=== PATIENT | male | born 1960 | race Caucasian/White ===

== ENCOUNTER → 2020-03-17 10:13 | Outpatient (CLI) | payer BC, SELFPAY ==
--- NOTE | ~2020-03-17 | XR_ITS ---
EXAMINATION: XR shoulder RT min 2V DATE: 03/17/2020 10:46 INDICATION: Right shoulder joint pain. TECHNIQUE: 4 views of right shoulder were obtained. COMPARISON: None. FINDINGS: Bone alignment is normal. No fracture. There is mild osteoarthritis of glenohumeral joint a nd severe osteoarthritis of acromioclavicular joint. IMPRESSION: 1. Polyarticular osteoarthritis. Reviewed, dictated and finalized at location A. ER WINDER
--- NOTE | ~2020-03-17 | XR_ITS ---
EXAMINATION:XR cervical spine 4-5V DATE: 03/17/2020 10:46 INDICATION: Neck pain TECHNIQUE: AP, lateral, lateral swimmers and odontoid views of the cervical spine are provided. COMPARISON: None FINDINGS: Alignment is normal. The odontoid is intact. No fracture is identified. The vertebral body heights are maintained. There is mild loss of intervertebral disc space height at C5-6. There is mode rate facet and uncovertebral joint osteoarthritis of the lower cervical spine. Prevertebral soft tiss ues are normal. IMPRESSION: 1. Mild cervical spondylosis without acute findings. Reviewed, dictated and finalized at location A. S REPRESENTATIVE ADDING MACHINES
--- NOTE | ~2020-03-17 | XR_ITS ---
EXAMINATION: XR shoulder LT min 2V DATE: 03/17/2020 10:47 INDICATION: Left shoulder joint pain. TECHNIQUE: 4 views of left shoulder were obtained. COMPARISON: Left shoulder radiographs 11/01/2006 FINDINGS: Bone alignment is normal. No fracture. There is mild osteoarthritis of glenohumeral joint a nd moderate osteoarthritis of acromioclavicular joint. IMPRESSION: 1. Polyarticular osteoarthritis. Reviewed, dictated and finalized at location A. IO GRIP
== END ==
PROVIDERS: PCP Nurse Practitioner Family; Visit Provider Nurse Practitioner Family
DX: M47.812 Spondylosis without myelopathy or radiculopathy, cervical region (principal); M19.012 Primary osteoarthritis, left shoulder; M19.011 Primary osteoarthritis, right shoulder
CPT/HCPCS: 72050; 73030

== ENCOUNTER 2020-08-05 10:53 | Outpatient (CLI) | payer BC, SELFPAY ==
--- NOTE | ~2020-08-05 | XR_ITS ---
EXAMINATION: XR foot LT min 3V EXAM DATE: 08/05/2020 11:25 INDICATION: Psoriasis, arthralgia unspec . TECHNIQUE: Left foot dorsoplantar, lateral and oblique projections obtained and reviewed. Correlation is made to contralateral foot same date. FINDINGS: Left metatarsal bones unremarkable. There are no acute fractures or dislocations identifi ed. There is no subcutaneous gas. The soft tissue is unremarkable. There are no radiopaque foreig n bodies. IMPRESSION: 1. Unremarkable XR foot LT min 3V exam. Reviewed, dictated and finalized at location A.
--- NOTE | ~2020-08-05 | XR_ITS ---
EXAMINATION: XR foot RT min 3V EXAM DATE: 08/05/2020 11:25 INDICATION: Psoriasis, arthralgia unspec. TECHNIQUE: Right foot dorsoplantar, lateral and oblique projections obtained and reviewed. There is no prior study for comparison. FINDINGS: Right metatarsal bones unremarkable. There are no acute fractures or dislocations identifi ed. There is no subcutaneous gas. The soft tissue is unremarkable. There are no radiopaque foreig n bodies. IMPRESSION: 1. Unremarkable XR foot RT min 3V exam. Reviewed, dictated and finalized at location A.
--- NOTE | ~2020-08-05 | XR_ITS ---
EXAMINATION: XR hand BI arthritis min 3V EXAM DATE: 08/05/2020 11:25 INDICATION: Psoriasis, arthralgia unspec . TECHNIQUE: Right hand frontal, lateral and oblique projections obtained and reviewed. Left hand fron suresh, lateral and oblique projections obtained and reviewed. Catchers projection of both hands. There is no prior study for comparison. FINDINGS: Right hand: There is mild 2nd and 3rd distal interphalangeal primary osteoarthritis. There are no acu te fractures or dislocations identified. There is no subcutaneous gas. The soft tissue is unremarka ble. There are no radiopaque foreign bodies. There are no bony erosions identified. Left hand: The joint spaces are uniform. There are no acute fractures or dislocations identified. There is no subcutaneous gas. The soft tissue is unremarkable. There are no radiopaque foreign bod ies. There are no bony erosions identified. IMPRESSION: Mild right hand 2nd, 3rd DIP osteoarthritis. Reviewed, dictated and finalized at location A.
== END 2020-08-05 10:54 | disposition home or self-care (01) ==
PROVIDERS: PCP Nurse Practitioner Family
DX: M25.50 Pain in unspecified joint (principal); L40.9 Psoriasis, unspecified; M19.041 Primary osteoarthritis, right hand
CPT/HCPCS: 73130; 73630

== ENCOUNTER 2021-01-27 11:44 | Outpatient (CLI) | payer BC, SELFPAY ==
--- NOTE | ~2021-01-27 | XR_ITS ---
XR shoulder RT min 2V DATE: 01/27/2021 12:04 INDICATION: Psoriatic arthritis. Unable to abduct arms due to shoulder pain TECHNIQUE: 4 views COMPARISON: None FINDINGS: No fracture or dislocation, periosteal reaction or bone destruction or abnormal soft tissue calcification. IMPRESSION: No significant abnormality Reviewed, dictated and finalized at location B. BILITY LIAISON OFFICER IMPRESSION: No significant abnormality
--- NOTE | ~2021-01-27 | XR_ITS ---
XR shoulder LT min 2V 01/27/2021 12:04 Indication: Psoriatic arthritis. Left shoulder pain. Procedure: 4 views left shoulder Comparison: 03/17/2020 Findings: There is anatomic alignment. No fracture, subluxation or dislocation. Surrounding soft tiss ues and osseous structures within normal limits. There is mild polyarticular osteoarthritis. Impression: 1: Mild polyarticular osteoarthritis of the left shoulder. Reviewed, dictated and finalized at location A. AL PARTS ASSEMBLER Impression: 1: Mild polyarticular osteoarthritis of the left shoulder.
== END 2021-01-27 11:45 | disposition home or self-care (01) ==
LOC: ANHIMG 11:48
PROVIDERS: PCP Nurse Practitioner Family; Visit Provider Internal Medicine Rheumatology
DX: L40.50 Arthropathic psoriasis, unspecified (principal); M19.012 Primary osteoarthritis, left shoulder
CPT/HCPCS: 73030

== ENCOUNTER 2021-03-29 13:29 | Outpatient (CLI) | payer BC, SELFPAY ==
--- NOTE | ~2021-03-29 | XR_ITS ---
EXAMINATION: XR chest 2V 03/29/2021 13:46 INDICATION: Psoriatic arthritis PROCEDURE: 2 view chest COMPARISON: Comparison to multiple prior studies sequentially, with oldest reviewed study dated 10/22. FINDINGS: The lungs are clear. The cardiomediastinal silhouette is within normal limits. There are no pleural effusions. There is no pneumothorax suspected. IMPRESSION: 1: NO ACUTE CARDIOPULMONARY DISEASE. Reviewed, dictated and finalized at location B. STOCK RECORDER
== END 2021-03-29 13:30 | disposition home or self-care (01) ==
LOC: ANHIMG 13:36
PROVIDERS: PCP Nurse Practitioner Family
DX: L40.50 Arthropathic psoriasis, unspecified (principal)
CPT/HCPCS: 71046

== ENCOUNTER 2022-04-01 09:17 | Outpatient (CLI) | payer BC, SELFPAY ==
[2022-04-01 09:37] LABS: Hematocrit 40.4 % (40.0-54.0); Hemoglobin 13.7 g/dL (14.0-18.0); Mean Corpuscular HGB Conc 33.9 g/dL (32.0-36.0); Mean Corpuscular Hemoglobin 32.5 pg (27.0-31.0); Mean Platelet Volume 9.5 fl (8.7-11.0); Platelet Count Result 209 K/mm3 (150-420); Red Blood Count 4.21 M/mm3 (4.70-6.10); White Blood Count 6.4 K/mm3 (4.8-10.8)
[2022-04-01 10:07] LABS: Alanine Aminotransferase 43 U/L (16-63); Alkaline Phosphatase 76 U/L (46-116); Anion Gap 8 mmol/L (8-16); Aspartate Amino Transferase 29 U/L (15-37); Bilirubin,Total 0.4 mg/dL (0.00-1.00); Blood Urea Nitrogen 17 mg/dL (7-18); Carbon Dioxide 29 mmol/L (21-32); Chloride 104 mmol/L (98-108); Cholesterol 147 mg/dL (0-200); Estimated Glomerular Filt Rate > 60; Glucose 106 mg/dL (70-99); HDL Direct 41 mg/dL (40-60); LDL Cholesterol Calculated 78 mg/dL (<130); Osmolality Calculated 293 mOsm/kg (285-295); Potassium 4.9 mmol/L (3.5-5.1); Sodium 141 mmol/L (136-145); Total Protein 7.6 g/dL (6.4-8.2); Triglycerides 138 mg/dL (0-150)
== END 2022-04-01 09:18 | disposition home or self-care (01) ==
LOC: CHSLAB 09:19
PROVIDERS: PCP Family Medicine; Visit Provider Family Medicine
DX: E78.5 Hyperlipidemia, unspecified (principal)
CPT/HCPCS: 36415; 80053; 80061; 85027

== ENCOUNTER 2022-06-15 14:10 | Outpatient (CLI) | payer BC, SELFPAY ==
--- NOTE | ~2022-06-15 | XR_ITS ---
EXAMINATION: XR chest 2V 06/15/2022 14:30 INDICATION: High risk medications. Psoriasis. PROCEDURE: 2 view chest COMPARISON: Comparison to multiple prior studies sequentially, with oldest reviewed study dated 09/30. FINDINGS: The lungs are clear. The cardiomediastinal silhouette is within normal limits. There are no pleural effusions. There is no pneumothorax suspected. IMPRESSION: 1: NO ACUTE CARDIOPULMONARY DISEASE. Reviewed, dictated and finalized at location B.
== END 2022-06-15 14:11 | disposition home or self-care (01) ==
LOC: CHSIMG 14:13
PROVIDERS: PCP Family Medicine
DX: L40.0 Psoriasis vulgaris (principal); Z79.899 Other long term (current) drug therapy
CPT/HCPCS: 71046

== ENCOUNTER 2023-10-09 13:46 | Emergency (ER) | payer BC, SELFPAY ==
[2023-10-09] VITALS (7 sets, daily range): BP systolic 131–162; BP diastolic 83–100; PULSE 60–76; RESP 16–20; TEMP 36.3; O2SAT 94–100
--- NOTE | ~2023-10-09 | XR_ITS ---
EXAMINATION: XR chest 1V portable DATE: 10/09/2023 14:57 INDICATION: Right-sided chest pain TECHNIQUE: frontal view of the chest was obtained. COMPARISON: Chest radiograph dated 06/15/2022 FINDINGS: The lungs remain clear with no focal airspace opacities, pulmonary edema, pleural effusion or pneumot horax. The cardiomediastinal silhouette is normal. IMPRESSION: 1. No acute cardiopulmonary disease. Reviewed, dictated and finalized at location A.
--- NOTE | 2023-10-09 14:02 | ED.CHESTPAIN ---
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 The pain had been off and on but this morning after he woke up the pain was severe and was rated as 10/10. No radiation of the pain. No shortness of breath or lightheadedness. No nausea vomiting. No diaphoresis. Patient had a negative stress test 15 years ago. MD complaint: chest pain Onset (ago): day(s) ( Three days) Timing of current episode: episodic Prior episodes: Yes Onset: during rest Pain location: right chest Pain radiation: none Severity: severe Quality: aching Relieving factors: nothing Exacerbating factors: nothing Treatment prior to arrival: none Related Data Home Medications Medication Instructions Recorded Confirmed aspirin 81 mg tablet,delayed 81 mg PO DAILY 09/28/20 04/14/23 release Allergies Allergy/AdvReac Type Severity Reaction Status Date / Time infliximab Allergy Unknown Muscle Verified 04/14/23 09:09 Spasms No Known Allergies Allergy Unknown Verified 04/14/23 09:09 Review of Systems Review of Systems: All systems reviewed & are unremarkable except as noted in HPI and below Constitutional: Constitutional: Reports as per HPI and Reports no additional constitutional complaints Eyes: Eyes: Reports as per HPI and Reports no additional eye complaints ENT: Reports system reviewed and no additional complaints, except as documented and Reports as per HPI Cardiovascular: Cardiovascular: Reports as per HPI, Reports no additional cardiovascular complaints and Reports chest pain Respiratory: Respiratory: Reports as per HPI and Reports no additional respiratory complaints Gastrointestinal: Gastrointestinal: Reports as per HPI and Reports no additional gastrointestinal complaints Genitourinary: Genitourinary: Reports no additional male genitourinary complaints and Reports as per HPI Musculoskeletal: Musculoskeletal: Reports no additional musculoskeletal complaints and Reports as per HPI Integumentary/Breasts: Skin/Breast: Reports system reviewed and no additional complaints, except as docu and Reports as per HPI Neurologic: Reports system reviewed and no additional complaints, except as documented and Reports as per HPI Psychiatric: Psychiatric: Reports no additional psychiatric complaints and Reports as per HPI Endocrine: Endocrine: Reports as per HPI Hematologic/Lymphatic: Hematologic/Lymphatic: Reports no additional hematologic/lymphatic complaints and Reports as per HPI Allergic/Immunologic: Allergic/Immunologic: Reports no additional allergic/immunologic complaints and Reports as per HPI [facility] Past Medical History Medical History Hyperlipidemia Surgical History Surgical History History of adenoidectomy History of appendectomy History of tonsillectomy Hx of vasectomy Family History Family History Father Family history of hypercholesterolemia Cerebrovascular accident Acute myocardial infarction Family history of pulmonary embolism Mother Family history of malignant neoplasm of breast in first degree relative Family history of atrial fibrillation Family history of hyperthyroidism Sibling Diabetes mellitus Other Family history of blood dyscrasia Family history of cardiovascular disease Family history of type 1 diabetes mellitus Social History Social History (Revie
--- NOTE | 2023-10-09 14:12 | ECG_ITS ---
Test Date: 2023-10-09 14:06:13 Measurements Intervals [place] Rate: 65 P: 54 KS: 182 QRS: 49 QRSD: 90 T: 67 QT: 409 QTc: 426 Interpretive Statements SINUS RHYTHM BASELINE ARTIFACT- III NORMAL ECG No previous ECG available for comparison Electronically Signed On 10-09-2023 17:37:58 CDT by Ej Quiroz D.O.
[2023-10-09 14:20] LABS: Basophils Absolute Auto 0.04 K/mm3 (0.00-0.10); Basophils Percent Auto 0.6 % (0.0-1.0); Eosinophils Absolute Auto 0.07 K/mm3 (0.02-0.50); Hematocrit 40.2 % (37.0-46.0); Hemoglobin 13.9 g/dL (12.4-15.3); Immature Granulocyte Absolute 0.04 K/mm3 (0.00-0.00); Immature Granulocyte Percent A 0.6 % (0.0-0.0); Lymphocytes Absolute Auto 2.55 K/mm3 (1.10-4.50); Lymphocytes Percent Auto 37.3 % (18.0-42.0); Mean Corpuscular HGB Conc 34.6 g/dL (32-36); Mean Corpuscular Hemoglobin 31.3 pg (27.0-31.0); Mean Corpuscular Volume 90.5 fL (78.0-102.0); Monocytes Absolute Auto 0.67 K/mm3 (0.10-0.90); Monocytes Percent Auto 9.8 % (2.0-11.0); Neutrophils Absolute Auto 3.47 K/mm3 (1.70-7.20); Neutrophils Percent Auto 50.7 % (50.0-70.0); Platelet Count Result 221 K/mm3 (150-420); Red Blood Count 4.44 M/mm3 (4.70-6.10); Red Cell Distribution Width 12.2 % (11.6-14.4); White Blood Count 6.8 K/mm3 (4.8-10.8)
[2023-10-09 14:26] LABS: D Dimer 0.19 mg/L (0.19-0.50)
[2023-10-09 14:35] LABS: Lactic Acid Reflex 1.2 mmol/L (0.4-2.0)
[2023-10-09 14:36] LABS: Alanine Aminotransferase 30 U/L (16-63); Albumin Level 3.9 g/dL (3.4-5.0); Alkaline Phosphatase 99 U/L (46-116); Anion Gap 7 mmol/L (4-12); Aspartate Amino Transferase 22 U/L (15-37); Bilirubin,Total 0.3 mg/dL (0.00-1.00); Blood Urea Nitrogen 15 mg/dL (7-18); Calcium 9.4 mg/dL (8.5-10.1); Carbon Dioxide 33 mmol/L (21-32); Chloride 96 mmol/L (98-108); Estimated Glomerular Filt Rate > 60; Glucose 96 mg/dL (70-99); NT Pro B Type Natriuretic Pept 40 pg/mL (0-125); Osmolality Calculated 282 mOsm/kg (285-295); Potassium 3.8 mmol/L (3.5-5.1); Sodium 136 mmol/L (136-145); Total Protein 7.6 g/dL (6.4-8.2)
[2023-10-09] MEDS: ASPIRIN 81 MG CHEWABLE TABLET 162 MG PO (15:31)
== END 2023-10-09 15:45 | disposition home or self-care (01) ==
PROVIDERS: Emergency Provider Internal Medicine Critical Care Medicine; PCP Family Medicine
DX: R07.9 Chest pain, unspecified (principal); I10 Essential (primary) hypertension; Z79.01 Long term (current) use of anticoagulants; Z86.711 Personal history of pulmonary embolism; E78.5 Hyperlipidemia, unspecified; Z87.891 Personal history of nicotine dependence
CPT/HCPCS: 36415; 71045; 80053; 83605; 83880; 84484; 85025; 85380; 93005; 99284; A9270

== ENCOUNTER 2023-12-08 13:57 | Outpatient (CLI) | payer BC, SELFPAY ==
[2023-12-08 14:08] LABS: Basophils Absolute Auto 0.04 K/mm3 (0.00-0.10); Basophils Percent Auto 0.7 % (0.0-1.0); Eosinophils Percent Auto 1.7 % (1.0-6.0); Hematocrit 41.4 % (37.0-46.0); Hemoglobin 14.3 g/dL (12.4-15.3); Immature Granulocyte Absolute 0.03 K/mm3 (0.00-0.00); Immature Granulocyte Percent A 0.5 % (0.0-0.0); Lymphocytes Absolute Auto 2.09 K/mm3 (1.10-4.50); Lymphocytes Percent Auto 35.1 % (18.0-42.0); Mean Corpuscular HGB Conc 34.5 g/dL (32-36); Mean Corpuscular Hemoglobin 31.2 pg (27.0-31.0); Mean Corpuscular Volume 90.4 fL (78.0-102.0); Mean Platelet Volume 9.5 fl (8.7-11.0); Monocytes Absolute Auto 0.62 K/mm3 (0.10-0.90); Monocytes Percent Auto 10.4 % (2.0-11.0); Neutrophils Absolute Auto 3.08 K/mm3 (1.70-7.20); Neutrophils Percent Auto 51.6 % (50.0-70.0); Platelet Count Result 215 K/mm3 (150-420); Red Blood Count 4.58 M/mm3 (4.70-6.10); Red Cell Distribution Width 12.4 % (11.6-14.4)
[2023-12-08 14:46] LABS: Anion Gap 9 mmol/L (4-12); Blood Urea Nitrogen 20 mg/dL (7-18); Calcium 9.3 mg/dL (8.5-10.1); Carbon Dioxide 30 mmol/L (21-32); Chloride 104 mmol/L (98-108); Estimated Glomerular Filt Rate > 60; Glucose 94 mg/dL (70-99); Osmolality Calculated 298 mOsm/kg (285-295); Potassium 4.1 mmol/L (3.5-5.1); Sodium 143 mmol/L (136-145)
== END 2023-12-08 13:58 | disposition home or self-care (01) ==
LOC: CHSLAB 13:57
PROVIDERS: PCP Family Medicine; Visit Provider Surgery
DX: K42.0 Umbilical hernia with obstruction, without gangrene (principal)
CPT/HCPCS: 36415; 80048; 85025

== ENCOUNTER 2024-03-15 13:56 | Outpatient (CLI) | payer BC, SELFPAY ==
--- OUTSIDE RECORDS SUMMARY | 2024-03-15 14:02 | XMS_ITS | Referral Summary ---
Author Organization [facility] Address [address] [place] [address] Care Team Providers Care Manager Government Name Role Phone Norma Mathias APRN-PICKING MACHINE OPERATOR Primary Care Provider Manuel Madera MD Unavailable [phone] Source Comments [facility],non-owned Affiliates and Associated Physician Practices is amultiple site organization consisting of ambulatory clinics and hospital sitesin [place], [place], [place] and [place]. This disclosure is being madepursuant to the Care Everywhere program and may not contain all information available regarding this patient. Last updated 17.[facility] Allergies Active Allergy Reactions Criticality Noted Date Comments Infliximab Other Low 05/06/2014 Body aches and chest pain. Medications * Be aware that medications may not be up to date on this document. Alwaysverify current medications with the patient. Medication Sig Dispensed Refills Start Date End Date Status aspirin EC (ECOTRIN) 81 MG tablet Take 81 mg by mouth once daily 12/31/2019 Active VASCEPA 1 g capsule Take 1 g by mouth once daily 05/06/2020 Active losartan (COZAAR) 50 MG tablet Take 50 mg by mouth once daily 05/06/2020 Active pravastatin (PRAVACHOL) 80 MG tablet Take 80 mg by mouth once daily 05/06/2020 Active XARELTO 10 MG tablet Take 10 mg by mouth once daily 05/18/2020 Active ezetimibe (ZETIA) 10 MG tablet Take 10 mg by mouth once daily 05/05/2021 Active pantoprazole EC (Protonix) 40 MG tablet Take 1 (one) tablet by mouth once daily 09/14/2021 Active Azelastine HCl 137 MCG/SPRAY SOLN Inhale 1 spray by mouth once daily 01/14/2022 Active meloxicam (Mobic) 15 MG tablet Take 1 (one) tablet by mouth once daily 90 tablet 2 03/17/2022 Active modafinil (Provigil) 200 MG tablet Take 1 (one) tablet by mouth 2 times daily 05/25/2022 Active Taltz 80 MG/ML auto-injector penIndications:Ps oriatic arthritis (HCC),Plaque psoriasis INJECT ONE PEN SUBCUTANEOUSLY EVERY 4 WEEKS. REFRIGERATE. ALLOW PEN TO REACH ROOM TEMP PRIOR TO INJECTION. 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 (AF LURIA, FLUZONE TRIVALENT; 6MO+) (IIV3) 11/23/2012 DTaP VACCINE IM (6wk-6yrs) 02/20/2009 FLU VACCINE QUAD IIV4 SPLIT 0.25 ML IM 0,11/07/2018 FLU VACCINE TRI IIV3 SPLIT PF IM (FLUVIRIN) 12/07 HEP B VACCINE, ADULT 3 DOSE 09/15/2009, 0,03/17/2009 INFLUENZA VACCINE 11/03/2021 TDAP (7yrs+) 01/25/2019 Social History Tobacco Use Types Packs/Day Years Used Date Smoking Tobacco: Former Cigarettes Smokeless Tobacco: Never Alcohol Use Standard Drinks/Week Comments Yes 5.8 (1 standard drink = 0.6 oz p ure alcohol) PHQ-2 Answer Date Recorded PHQ2 TOTAL SCORE 0 05/17/2021 Sex and Gender Information Value Date Recorded Sex Assigned at Not on file Gender Identity Not on file Sexual Orientation Not on file Last Filed Vital Signs Vital Sign Reading Time Taken Comments Blood Pressure 120/72 05/17/2021 1:14 PM CDT Pulse 72 05/21/2020 9:37 AM CDT Temperature 36.6 C (97.9 F) 05/17/2021 1:14 PM CDT Respiratory Rate 20 12/09/2014 9:10 AM ACCOUNT SERVICES COORDINATOR Oxygen Saturation 96% 12/09/2014 9:10 AM ACCOUNT SERVICES COORDINATOR Inhaled Oxygen Concentration - - Weight 100.7 kg (222 lb) 05/17/2021 1:14 PM CDT Height 180.3 cm (5' 11 ) 05/17/2021 1:14 PM CDT Body Mass Index 30.96 05/17/2021 1:14 PM CDT Plan of Treatment Not on file Care Teams Manager Government Relationship Specialty Start Date End Date Norma Mathias, PRIMARY OPERATOR-PICKING MACHINE OPERATOR [address] [place] [address] PCP - General 03/27/20 Manuel Madera MD [facility] [address] Referring Physician Dermatology 01/25/21
--- OUTSIDE RECORDS SUMMARY | 2024-03-15 14:02 | XMS_ITS | Clinical Summary ---
Author Organization [facility] [employer] Address [address] [place] [address] Care Team Providers Care Drawer Upfitter Name Role Phone Norma Mathias APRN-PROCESS HELPER Primary Care Provider Manuel Madera MD Unavailable [phone] Source Comments [facility],non-owned Affiliates and Associated Physician Practices is amultiple site organization consisting of ambulatory clinics and hospital sitesin [place], [place], [place] and [place]. This disclosure is being madepursuant to the Care Everywhere program and may not contain all information available regarding this patient. Last updated 17.[facility] [employer] Allergies Active Allergy Reactions Criticality Noted Date [...] 0,03/17/2009 INFLUENZA VACCINE 11/03/2021 TDAP (7yrs+) 01/25/2019 Family History Medical History Relation Name Comments CVA Father Heart Disease Father Hypertension Father Pulmonary Embolism Father Thyroid Disease Father Cancer Maternal Aunt breast cancer Cancer Maternal Grandmother breast cancer Cancer Mother Breast cancer Heart Disease Mother Thyroid Disease Mother Relation Name Status Comments Father Maternal Aunt Maternal Grandmother Mother Social History Tobacco Use Types Packs/Day Years [...] CDT Respiratory Rate 20 12/09/2014 9:10 AM ORACLE ETL DEVELOPER Oxygen Saturation 96% 12/09/2014 9:10 AM ORACLE ETL DEVELOPER Inhaled Oxygen Concentration - - Weight 100.7 kg (222 lb) 05/17/2021 1:14 PM CDT Height 180.3 cm (5' 11 ) 05/17/2021 1:14 PM CDT Body Mass Index 30.96 05/17/2021 1:14 PM CDT Plan of Treatment Health Maintenance Due Date Last Done Comments COLOGUARD (AGES 45-75) - COLON CA SCREENING 1958 COLON MONITORING 1958 COLONOSCOPY - COLON CA SCREENING 1958 CT COLONOGRAPHY - COLON CA SCREENING 1960 Colorectal Cancer Screening 1958 FIT - COLON CA SCREENING 1958 FLEX SIG - COLON CA SCREENING 1958 HEPATITIS C SCREENING 01/25/1976 PNEUMOCOCCAL VACCINE 50+ (1 of 1 - PCV) 01/30/2008 ZOSTER VACCINE (1 of 2) 01/30/2008 Respiratory Syncytial Virus (RSV) Vaccine Pt: or over 60 yrs (1 - Risk 60-74 years 1-dose series) 2018 AAA SCREENING 2023 COVID-19 VACCINE (3 - 2023- season) 2023 12/03/2020, 04/16/2020 INFLUENZA VACCINE (#1) 2023 2, 11/09/2019, 11/10/2018, Additional history exists DEPRESSION SCREENING 02/07/2024 DTAP/TDAP/TD VACCINES (3 - Td or Tdap) 01/25/2029 01/25/2019, 02/20/2009 HEPATITIS B VACCINE Completed 09/15/2009, 05/19/2009, 03/17/2009 HIB VACCINE Aged Out No longer eligi ble based on patient's age to complete this topic HPV VACCINE Aged Out No longer eligi ble based on patient's age to complete this topic MENINGOCOCCAL (Group B) VACCINE Aged Out No longer eligible based on patient's age to complete this topic MENINGOCOCCAL VACCINE Aged Out No rell shaun eligible based on patient's age to complete this topic Care Teams Drawer Upfitter Relationship Specialty Start Date End Date Norma Mathias, MARKET RELATIONSHIP MANAGER-PROCESS HELPER [address] [place] [address] PCP - General 03/27/20 Manuel Madera MD [address] [address] Referring Physician Dermatology 01/25/21
--- OUTSIDE RECORDS SUMMARY | 2024-03-15 14:02 | XMS_ITS | Patient Health Summary ---
Author Organization [facility], [facility] Address [address] [place] [address] Care Team Providers Care Booking Clerk Name Role Phone Norma Mathias APRN-REGIONAL PLANNER Primary Care Provider Manuel Madera MD Unavailable [phone] Note from [facility],non-owned Affiliates and Associated Physician Practices is amultiple site organization consisting of ambulatory clinics and hospital sitesin [place], [place], [place] and [place]. This disclosure is being madepursuant to the Care Everywhere program and may not contain all information available regarding this patient. Last updated 17.[facility] Allergies * Infliximab(Other) -Low Criticality Medications * Be aware that medications may not be up to date on this document. Alwaysverify current medications with the patient. * aspirin EC (ECOTRIN) 81 MG tablet(Started 12/31/2019) Take 81 mg by mouth once daily * VASCEPA 1 g capsule(Started 05/06/2020) Take 1 g by mouth once daily * losartan (COZAAR) 50 MG tablet(Started 05/06/2020) Take 50 mg by mouth once daily * pravastatin (PRAVACHOL) 80 MG tablet(Started 05/06/2020) Take 80 mg by mouth once daily * XARELTO 10 MG tablet(Started 05/18/2020) Take 10 mg by mouth once daily * ezetimibe (ZETIA) 10 MG tablet(Started 05/05/2021) Take 10 mg by mouth once daily * pantoprazole EC (Protonix) 40 MG tablet(Started 09/14/2021) Take 1 (one) tablet by mouth once daily * Azelastine HCl 137 MCG/SPRAY SOLN(Started 01/14/2022) Inhale 1 spray by mouth once daily * meloxicam (Mobic) 15 MG tablet(Started 03/17/2022) Take 1 (one) tablet by mouth once daily 2 refills by 03/17/2023 * modafinil (Provigil) 200 MG tablet(Started 05/25/2022) Take 1 (one) tablet by mouth 2 times daily * Taltz 80 MG/ML auto-injector pen(Started 11/08/2022) INJECT ONE PEN SUBCUTANEOUSLY EVERY 4 WEEKS. REFRIGERATE. ALLOW PEN TO REACH ROOM TEMP PRIOR TO INJECTION. 5 refills by 11/08/2023 Active Problems Problem Noted Date Diagnosed Date Psoriatic arthritis 06/01/2022 High risk medications (not anticoagulants) long- term use 06/01/2022 Personal history of pulmonary embolism 5 Nonspecific reaction to tube rculin skin test without active tuberculosis 05/06/2014 Plaque psoriasis 05/06/2014 Hyperlipidemia 05/06/2014 Obstructive sleep apnea 05/06/2014 Immunizations * INFLUENZA VACCINE, TRIV. (AFLURIA, FLUZONE TRIVALENT; 6MO+) (IIV3)(Given 11/23/2012) * DTaP VACCINE IM (6wk-6yrs)(Given 02/20/2009) * FLU VACCINE QUAD IIV4 SPLIT 0.25 ML IM(Given 11/09/2019, 11/07/2018) * FLU VACCINE TRI IIV3 SPLIT PF IM (FLUVIRIN)(Given 12/17/2013) * HEP B VACCINE, ADULT 3 DOSE(Given 09/15/2009, 05/19/2009, 03/17/2009) * INFLUENZA VACCINE(Given 11/03/2021) * TDAP (7yrs+)(Given 01/25/2019) Social History Tobacco Use Types Packs/Day Years [...] CDT Respiratory Rate 20 12/09/2014 9:10 AM DIRECTOR DIGITAL CATALOGUE Oxygen Saturation 96% 12/09/2014 9:10 AM DIRECTOR DIGITAL CATALOGUE Inhaled Oxygen Concentration - - Weight 100.7 kg (222 lb) 05/17/2021 1:14 PM CDT Height 180.3 cm (5' 11 ) 05/17/2021 1:14 PM CDT Body Mass Index 30.96 05/17/2021 1:14 PM CDT Procedures * C-REACTIVE PROTEIN(Performed 03/29/2021) * CBC W AUTO DIFFERENTIAL(Performed 03/29/2021) * URINALYSIS W/MICROSCOPIC NO CULTURE(Performed 03/29/2021) * ERYTHROCYTE SEDIMENTATION RATE(Performed 03/29/2021) * COMPREHENSIVE METABOLIC PANEL(Performed 03/29/2021) * C-REACTIVE PROTEIN(Performed 02/12/2021) * CBC W AUTO DIFFERENTIAL(Performed 02/12/2021) * ERYTHROCYTE SEDIMENTATION RATE(Performed 02/12/2021) * URINALYSIS W/MICROSCOPIC NO CULTURE(Performed 02/12/2021) * COMPREHENSIVE METABOLIC PANEL(Performed 02/12/2021) * URINALYSIS W/MICROSCOPIC NO CULTURE(Performed 12/30/2020) Performed for Psoriatic arthritis (FORM[facility]LY [facility]) * ERYTHROCYTE SEDIMENTATION RATE(Performed 12/30/2020) Performed for Psoriatic arthritis ([facility]) * C-REACTIVE PROTEIN(Performed 12/30/2020) Performed for Psoriatic arthritis ([facility]) * COMPREHENSIVE METABOLIC PANEL(Performed 12/30/2020) Performed for Psoriatic arthritis ([facility]) * CBC W AUTO DIFFERENTIAL(Performed 12/30/2020) Performed for Psoriatic arthritis ([facility]) * SS-B (SJOGREN'S) ANTIBODY(Performed 08/05/2020) * SS-A (SJOGREN'S) ANTIBODY(Performed 08/05/2020) * CHROMATIN ANTIBODY(Performed 08/05/2020) * CYCLIC CITRULLINATED PEPTIDE(CCP) AB IGG(Performed 08/05/2020) * SANDERS (SM)+CITY ENGINEER ANTIBODY PANEL(Performed 08/05/2020) * C-REACTIVE PROTEIN(Performed 08/05/2020) * RHEUMATOID FACTOR BLOOD QUANTITATIVE(Performed 08/05/2020) * DNA ANTIBODY DOUBLE STRANDED(Performed 08/05/2020) * CBC W AUTO DIFFERENTIAL(Performed 08/05/2020) * ERYTHROCYTE SEDIMENTATION RATE(Performed 08/05/2020) * HISTONE ANTIBODY(Performed 08/05/2020) Results * URINALYSIS W/MICROSCOPIC NO CULTURE (03/29/2021 9:50 AM DIRECTOR DIGITAL CATALOGUE) Only the most recent of3 resultswithin the time period is included. Pathologist [facility] Color UA YELLOW YELLOW [facility] Appearance CLEAR CLEAR [facility] Specific [place] UA 1.004 1.001 - 1.035 [facility] pH UA 7.0 5.0 - 8.0 [facility] Glucose UA NEGATIVE NEGATIVE [facility] Bilirubin UA NEGATIVE NEGATIVE [facility] Ketone UA NEGATIVE NEGATIVE [facility] Blood UA NEGATIVE NEGATIVE [facility] Protein UA NEGATIVE NEGATIVE [facility] Nitrite UA NEGATIVE NEGATIVE [facility] Leukocyte UA NEGATIVE NEGATIVE [facility] WBC UA NONE SEEN < OR = 5 /HPF [facility] RBC UA NONE SEEN < OR = 2 /HPF [facility] Epithelial Cell UA NONE SEEN < OR = 5 /HPF [facility] Transitional Epithelial Cells [facility] Renal Epithelial Cells [facility] Bacteria UA NONE SEEN NONE SEEN /HPF [facility] Calcium Oxalate Crystals [facility] Triple Phosphate Crystals [facility] Uric Acid Crystals [facility] Amorphous UA [facility] Crystals UA [facility] Hyaline Casts NONE SEEN NONE SEEN /LPF [facility] Comment: Test Performed at: [place] [address] NATHANAEL ARAGON DO,MPH Granular Casts [facility] Casts UA [facility] Yeast [facility] Comments [facility] Note [facility] Comment: Test Performed at: [place] [address] NATHANAEL ARAGON DO,MPH 03/29/2021 9:50 AM DIRECTOR DIGITAL CATALOGUE 03/29/2021 9:51 AM DIRECTOR DIGITAL CATALOGUE Osvaldo oRwe MD LAB - URINALYSIS ORD ERABLES [facility] [address] [place] [address] * C-REACTIVE PROTEIN (03/29/2021 9:50 AM DIRECTOR DIGITAL CATALOGUE) Only the most recent of4 resultswithin the time period is included. [facility] C-Reactive Protein 1.6 <8.0 mg/L [facility] Comment: REPORT COMMENT: FASTING:YES Test Performed at: [facility] [address] [place] [address] NATHANAEL ARAGON DO,MPH 03/29/2021 9:50 AM DIRECTOR DIGITAL CATALOGUE 03/29/2021 9:51 AM DIRECTOR DIGITAL CATALOGUE Osvaldo Rowe MD LAB - CHEMISTRY ORDE MILAGROS Performing Organization Address [facility] de Phone Number [facility] [address] [place] [address] * ERYTHROCYTE SEDIMENTATION RATE (03/29/2021 9:50 AM DIRECTOR DIGITAL CATALOGUE) Only the most recent of4 resultswithin the time period is included. [facility] Erythrocyte Sedimentation Rate Westergren 11 < OR = 20 mm/h [facility] Comment: Test Performed at: [facility] [address] [place] [address] NATHANAEL ARAGON DO,MPH 03/29/2021 9:50 AM DIRECTOR DIGITAL CATALOGUE 03/29/2021 9:51 AM DIRECTOR DIGITAL CATALOGUE Osvaldo Rowe MD LAB - HEMATOLOGY ORD YOLIS Performing Organization Address [facility] de Phone Number [facility] [address] [place] [address] * CBC WITH DIFFERENTIAL (03/29/2021 9:50 AM DIRECTOR DIGITAL CATALOGUE) Only the most recent of4 resultswithin the time period is included. Pathologist [facility] White Blood Cell Count 4.3 3.8 - 10.8 Thousand/u L [facility] RBC 4.34 4.20 - 5.80 Million/uL [facility] Hemoglobin 13.8 13.2 - 17.1 g/dL [facility] Hematocrit 41.5 38.5 - 50.0 % [facility] MCV 95.6 80.0 - 100.0 fL [facility] MCH 31.8 27.0 - 33.0 pg [facility] MCHC 33.3 32.0 - 36.0 g/dL [facility] RDW 14.2 11.0 - 15.0 % [facility] Platelet Count 238 140 - 400 Thousand/u L [facility] MPV 11.1 7.5 - 12.5 fL [facility] Neutrophil Absolute 2141 1500 - 7800 cells/uL [facility] Lymphocytes Absolute 1587 850 - 3900 cells/uL [facility] Absolute Monocytes 529 200 - 950 cells/uL [facility] Eosinophils Absolute 22 15 - 500 cells/uL [facility] Basophils Absolute 22 0 - 200 cells/uL [facility] Granulocytes % 49.8 % [facility] Lymphocytes % 36.9 % [facility] Monocytes % 12.3 % [facility] Eosinophils % 0.5 % [facility] Basophils % 0.5 % [facility] Comment: Test Performed at: [email or web address] [id number] [place] [address] NATHANAEL ARAGON DO,MPH 03/29/2021 9:50 AM DIRECTOR DIGITAL CATALOGUE 03/29/2021 9:51 AM DIRECTOR DIGITAL CATALOGUE Osvaldo Rowe MD LAB - HEMATOLOGY ORD ERABLES [facility] [address] [place] [address] * (ABNORMAL) COMPREHENSIVE METABOLIC PANEL (03/29/2021 9:50 AM DIRECTOR DIGITAL CATALOGUE) Only the most recent of3 resultswithin the time period is included. Glucose 100(H) 65 - 99 mg/dL [facility] Comment: Fasting reference interval For someone without known diabetes, a glucose value between 100 and 125 mg/dL is consistent with prediabetes and should be confirmed with a follow-up test. BUN 13 7 - 25 mg/dL [facility] Creatinine 0.73 0.70 - 1.25 mg/dL [facility] Comment: For patients >49 years of age, the reference limit for Creatinine is approximately 13% higher for people identified as -Australian. eGFR by MDRD 99 > OR = 60 mL/min/1 .73m2 [facility] eGFR by MDRD 114 > OR = 60 mL/min/1 .73m2 [facility] BUN/Creatinine Ratio NOT APPLICABLE 6 - 22 (calc) [facility] Sodium 136 135 - 146 mmol/L [facility] Potassium 4.3 3.5 - 5.3 mmol/L [facility] Chloride 101 98 - 110 mmol/L [facility] CO2 25 20 - 32 mmol/L [facility] Calcium 9.4 8.6 - 10.3 mg/dL [facility] Protein Total 7.1 6.1 - 8.1 g/dL [facility] Albumin 4.4 3.6 - 5.1 g/dL [facility] Globulin Total 2.7 1.9 - 3.7 g/dL (calc) [facility] Albumin/Globulin Ratio 1.6 1.0 - 2.5 (calc) [facility] Bilirubin Total 0.8 0.2 - 1.2 mg/dL [facility] Alkaline Phosphatase 71 35 - 144 U/L [facility] AST 21 10 - 35 U/L [facility] ALT 24 9 - 46 U/L [facility] Comment: Test Performed at: [email or web address] [address] [facility] [address] NATHANAEL ARAGON DO,MPH 03/29/2021 9:50 AM DIRECTOR DIGITAL CATALOGUE 03/29/2021 9:51 AM DIRECTOR DIGITAL CATALOGUE Osvaldo Rowe MD LAB - CHEMISTRY JAMIL MARKELLCONCEPCIÓN Performing Organization Address City/[facility] Co de Phone Number [facility] [address] [place] [address] * SANDERS (SM)+CITY ENGINEER ANTIBODY PANEL (08/05/2020 10:18 AM CDT) SM Antibody <1.0 NEG <1.0 NEG AI [facility] SM/CITY ENGINEER Antibody <1.0 NEG <1.0 NEG AI [facility] Comment: Test Performed at: [email or web address] [address] [place], [place] [address] NATHANAEL ARAGON DO,MPH 08/05/2020 10:1 8 AM CDT 08/05/2020 10:20 AM CDT Osvaldo Rowe MD LAB - SEROLOGY ORDER ROBBIE Performing Organization Address [facility] Co de Phone Number [facility] [address] [place] [address] * CHROMATIN ANTIBODY (08/05/2020 10:18 AM CDT) Chromatin Nucleosomal Antibody <1.0 NEG <1.0 NEG AI [facility] Comment: Test Performed at: [email or web address] [address] [employer] [facility] [address] NATHANAEL ARAGON DO,MPH 08/05/2020 10:1 8 AM CDT 08/05/2020 10:20 AM CDT Osvaldo Rowe MD LAB - SEROLOGY ORDER ROBBIE [facility] [address] [place] [address] * RHEUMATOID FACTOR BLOOD QUANTITATIVE (08/05/2020 10:18 AM CDT) Rheumatoid Factor <14 <14 IU/mL [facility] Comment: Test Performed at: [facility] [address] [place] [address] NATHANAEL ARGAON DO,MPH 08/05/2020 10:1 8 AM CDT 08/05/2020 10:20 AM CDT Osvaldo Rowe MD LAB - CHEMISTRY JAMIL LINARES Performing Organization Address [facility] Co de Phone Number [facility] [phone] [place] [address] * HISTONE ANTIBODY (08/05/2020 10:18 AM CDT) Histone Antibodies <1.0 U [facility] Comment: Value Expanation of Results <1.0 Negative 1.0-1.5 Weak Positive 1.6-2.5 Moderate Positive >2.5 Strong Positive Test Performed at: [facility] [address] [place] [address] SANDEE ORTIZ MD,PHD,CHRISTI 08/05/2020 10:1 8 AM CDT 08/05/2020 10:20 AM CDT Osvaldo Rowe MD LAB - CHEMISTRY JAMIL LINARES Performing Organization Address [facility] Co de Phone Number [facility] [phone] [place] [address] * SS-B (SJOGREN'S) ANTIBODY (08/05/2020 10:18 AM CDT) Sjogren's Antibodies (SSB) <1.0 NEG <1.0 NEG AI [facility] Comment: REPORT COMMENT: FASTING:NO Test Performed at: [facility] [address] [place] [address] NATHANAEL ARAGON DO,MPH 08/05/2020 10:1 8 AM CDT 08/05/2020 10:20 AM CDT Osvaldo Rowe MD LAB - CHEMISTRY JAMIL LINARES Performing Organization Address [facility] [place] [place] [address] * (ABNORMAL) SS-A (SJOGREN'S) ANTIBODY (08/05/2020 10:18 AM CDT) Sjogren's Antibodies (SSA) >8.0 POS(A) <1.0 NEG AI [facility] Comment: Test Performed at: [place] [address] NATHANAEL ARAGON DO,MPH 08/05/2020 10:1 8 AM CDT 08/05/2020 10:20 AM CDT Osvaldo Rowe MD LAB - CHEMISTRY JAMIL LINARES Performing Organization Address [facility] de Phone Number [facility] [address] [place] [address] * DNA ANTIBODY DOUBLE STRANDED (08/05/2020 10:18 AM CDT) Pathologist [facility] dsDNA Antibody <1 IU/mL [facility] Comment: IU/mL Interpretation < or = 4 Negative 5-9 Indeterminate > or = 10 Positive Test Performed at: [place] [address] NATHANAEL ARAGON DO,MPH 08/05/2020 10:1 8 AM CDT 08/05/2020 10:20 AM CDT Osvaldo Rowe MD LAB - HEMATOLOGY ORD ERABLES Performing Organization Address [facility] Co de Phone Number [facility] [address] [place] [address] * CYCLIC CITRULLINATED PEPTIDE(CCP) AB IGG (08/05/2020 10:18 AM CDT) Pathologist [facility] Cyclic Citrullinated Peptide Antibody IgG <16 UNITS [facility] Comment: Reference Range Negative: <20 Weak Positive: 20-39 Moderate Positive: 40-59 Strong Positive: >59 Test Performed at: [facility] [address] NATHANAEL ARAGON DO,MPH 08/05/2020 10:1 8 AM CDT 08/05/2020 10:20 AM CDT Osvaldo Rowe MD LAB - CHEMISTRY JAMIL LINARES [facility] [address] [place] [address] Care Teams Booking Clerk Relationship Specialty Start Date End Date Norma Mathias, FREIGHT TEAM ASSOCIATE-REGIONAL PLANNER [address] [place] [address] PCP - General 03/27/20 Manuel Madera MD [facility] [address] Referring Physician Dermatology 01/25/21
== END 2024-03-15 13:57 | disposition home or self-care (01) ==
PROVIDERS: PCP Family Medicine; Visit Provider Family Medicine
DX: I82.409 Acute embolism and thrombosis of unspecified deep veins of unspecified lower extremity (principal)
CPT/HCPCS: 99199

== ENCOUNTER 2024-03-15 15:23 | Outpatient (CLI) | payer BC, SELFPAY ==
--- NOTE | ~2024-03-15 | US_ITS ---
EXAMINATION: US venous doppler [facility] DATE: 03/15/2024 16:05 INDICATION: Left lower limb deep venous anastomosis presenting with swelling and erythema TECHNIQUE: Grayscale ultrasound images without and with compression and Doppler ultrasound images of the left lower extremity veins were obtained. COMPARISON: 09/30/2011 FINDINGS: The previously noncompressible left popliteal vein, tibioperoneal trunk and lesser saphenous veins ar e now partially compressible with small mild to peripheral nonocclusive thrombus which could be chron ic. The visualized portions of left common femoral vein, profunda (deep) femoral vein, femoral vein, peroneal veins, posterior tibial veins and greater saphenous vein outflow are patent. IMPRESSION: 1. Nonocclusive thrombus at the periphery of the left popliteal vein, tibioperoneal trunk and lesser saphenous vein which were previously obstructing thrombosed and this could represent residual chroni c thrombus. Dr. James discussed these findings the medical librarian for Dr. Romano at 4:20 PM. Reviewed, dictated and finalized at location B. ICAL SERVICES ASSISTANT IMPRESSION: 1. Nonocclusive thrombus at the periphery of the left popliteal vein, tibioper miranda trunk and lesser saphenous vein which were previously obstructing thrombo sed and this could represent residual chronic thrombus. Dr. James discussed these findings the medical librarian for Dr. Romano at 4:20 PM.
--- OUTSIDE RECORDS SUMMARY | 2024-03-15 15:30 | XMS_ITS | Patient Health Summary ---
Author Organization [facility] Address [address] [place] [address] Care Team Providers Care Veterinary Medicine Scientist Name Role Phone Norma Mathias APRN-COREMAKER EXPERIMENTAL Primary Care Provider Manuel Madera MD Unavailable [phone] Note from [facility],non-owned Affiliates and Associated Physician Practices is amultiple site organization consisting of ambulatory clinics and hospital sitesin [place], [place], [place] and [place]. This disclosure is being madepursuant to the Care Everywhere program and may not contain all information available regarding this patient. Last updated 17.[facility] Allergies * Infliximab(Other) -Low Criticality [...] CDT Respiratory Rate 20 12/09/2014 9:10 AM VALVE STEAMER Oxygen Saturation 96% 12/09/2014 9:10 AM VALVE STEAMER Inhaled Oxygen Concentration - - Weight 100.7 [...] NO CULTURE(Performed 12/30/2020) Performed for Psoriatic arthritis ([facility]) * ERYTHROCYTE SEDIMENTATION RATE(Performed 12/30/2020) Performed for Psoriatic arthritis ([facility]) * C-REACTIVE PROTEIN(Performed 12/30/2020) Performed for Psoriatic arthritis ([facility]) * COMPREHENSIVE METABOLIC PANEL(Performed 12/30/2020) Performed for Psoriatic arthritis ([facility]) * CBC W AUTO DIFFERENTIAL(Performed 12/30/2020) Performed for Psoriatic arthritis ([facility]) * SS-B (SJOGREN'S) ANTIBODY(Performed 08/05/2020) * SS-A (SJOGREN'S) ANTIBODY(Performed 08/05/2020) * CHROMATIN ANTIBODY(Performed 08/05/2020) * CYCLIC CITRULLINATED PEPTIDE(CCP) AB IGG(Performed 08/05/2020) * SANDERS (SM)+SPRING SETTER ANTIBODY PANEL(Performed 08/05/2020) * C-REACTIVE PROTEIN(Performed 08/05/2020) * RHEUMATOID FACTOR BLOOD QUANTITATIVE(Performed 08/05/2020) * DNA ANTIBODY DOUBLE STRANDED(Performed 08/05/2020) * CBC W AUTO DIFFERENTIAL(Performed 08/05/2020) * ERYTHROCYTE SEDIMENTATION RATE(Performed 08/05/2020) * HISTONE ANTIBODY(Performed 08/05/2020) Results * URINALYSIS W/MICROSCOPIC NO CULTURE (03/29/2021 9:50 AM VALVE STEAMER) Only the most recent of3 resultswithin the time period is included. Pathologist [facility] Color UA YELLOW YELLOW [facility] Appearance CLEAR CLEAR [facility] Specific [place] UA 1.004 1.001 - 1.035 [facility] pH [...] SEEN /LPF [facility] Comment: Test Performed at: [email or web address] [address] NATHANAEL ARAGON DO,MPH Granular Casts [facility] Casts UA [facility] Yeast [facility] Comments [facility] Note [facility] Comment: Test Performed at: [email or web address] [address] NATHANAEL ARAGON DO,MPH 03/29/2021 9:50 AM VALVE STEAMER 03/29/2021 9:51 AM VALVE STEAMER Osvaldo Rowe MD LAB - URINALYSIS ORD ERABLES [facility] [address] [place] [address] * C-REACTIVE PROTEIN (03/29/2021 9:50 AM VALVE STEAMER) Only the most recent of4 resultswithin the time period is included. [facility] C-Reactive Protein 1.6 <8.0 mg/L [facility] Comment: REPORT COMMENT: FASTING:YES Test Performed at: [facility] [address] [place] [address] NATHANAEL ARAGON DO,MPH 03/29/2021 9:50 AM VALVE STEAMER 03/29/2021 9:51 AM VALVE STEAMER Osvaldo Rowe MD LAB - CHEMISTRY ORDE MILAGROS Performing Organization Address [facility] de Phone Number [facility] [address] [place] [address] * ERYTHROCYTE SEDIMENTATION RATE (03/29/2021 9:50 AM VALVE STEAMER) Only the most recent of4 resultswithin the time period is included. [facility] Erythrocyte Sedimentation Rate Westergren 11 < OR = 20 mm/h [facility] Comment: Test Performed at: [facility] [address] [place] [address] NATHANAEL ARAGON DO,MPH 03/29/2021 9:50 AM VALVE STEAMER 03/29/2021 9:51 AM VALVE STEAMER Osvaldo Rowe MD LAB - HEMATOLOGY ORD YOLIS Performing Organization Address [facility] de Phone Number [facility] [address] [place] [address] * CBC WITH DIFFERENTIAL (03/29/2021 9:50 AM VALVE STEAMER) Only the most recent of4 resultswithin the [...] 0.5 % [facility] Comment: Test Performed at: [employer] [address] [place] [address] NATHANAEL ARAGON DO,MPH 03/29/2021 9:50 AM VALVE STEAMER 03/29/2021 9:51 AM VALVE STEAMER Osvaldo Rowe MD LAB - HEMATOLOGY ORD ERABLES [facility] [address] [place] [address] * (ABNORMAL) COMPREHENSIVE METABOLIC PANEL (03/29/2021 9:50 AM VALVE STEAMER) Only the most recent of3 resultswithin the [...] approximately 13% higher for people identified as -Romanian. eGFR by MDRD 99 > OR = [...] 46 U/L [facility] Comment: Test Performed at: [employer] [address] [place] [employer] [facility] [address] NATHANAEL ARAGON DO,MPH 03/29/2021 9:50 AM VALVE STEAMER 03/29/2021 9:51 AM VALVE STEAMER Osvaldo Rowe MD LAB - CHEMISTRY JAMIL MARKELLCONCEPCIÓN Performing Organization Address City/[facility] Co de Phone Number [facility] [address] [place] [address] * SANDERS (SM)+SPRING SETTER ANTIBODY PANEL (08/05/2020 10:18 AM CDT) SM Antibody <1.0 NEG <1.0 NEG AI [facility] SM/SPRING SETTER Antibody <1.0 NEG <1.0 NEG AI [facility] Comment: Test Performed at: [employer] [address] [employer], [place] [address] NATHANAEL ARAGON DO,MPH 08/05/2020 10:1 8 AM CDT 08/05/2020 10:20 AM CDT Osvaldo Rowe MD LAB - SEROLOGY ORDER ROBBIE Performing Organization Address City/[facility] Co de Phone Number [facility] [address] [place] [address] * CHROMATIN ANTIBODY (08/05/2020 10:18 AM CDT) Chromatin Nucleosomal Antibody <1.0 NEG <1.0 NEG AI [facility] Comment: Test Performed at: [employer] [address] [facility] [address] NATHANAEL ARAGON DO,MPH 08/05/2020 10:1 8 AM CDT 08/05/2020 10:20 AM CDT Osvaldo Rowe MD LAB - SEROLOGY ORDER ROBBIE [facility] [address] [place] [address] * RHEUMATOID FACTOR BLOOD QUANTITATIVE (08/05/2020 10:18 AM CDT) Rheumatoid Factor <14 <14 IU/mL [facility] Comment: Test Performed at: [facility] [place] [address] [place] [address] NATHANAEL ARAGON DO,MPH 08/05/2020 10:1 8 AM CDT 08/05/2020 10:20 AM CDT Osvaldo Rowe MD LAB - CHEMISTRY JAMIL LINARES Performing Organization Address [facility] Co de Phone Number [facility] [phone] [place] [address] * HISTONE ANTIBODY (08/05/2020 10:18 AM CDT) Histone Antibodies <1.0 U [facility] Comment: Value Expanation of Results <1.0 Negative 1.0-1.5 Weak Positive 1.6-2.5 Moderate Positive >2.5 Strong Positive Test Performed at: [facility] [address] [place] [address] SANDEE ORTIZ MD,PHD,CHRISTI 08/05/2020 10:1 8 AM CDT 08/05/2020 10:20 AM CDT Osvaldo Rowe MD LAB - CHEMISTRY JAMIL LINARES Performing Organization Address [facility] Co de Phone Number [facility] [phone] [place] [address] * SS-B (SJOGREN'S) ANTIBODY (08/05/2020 10:18 AM CDT) Sjogren's Antibodies (SSB) <1.0 NEG <1.0 NEG AI [facility] Comment: REPORT COMMENT: FASTING:NO Test Performed at: [facility] [place] [address] [place] [address] NATHANAEL ARAGON DO,MPH 08/05/2020 10:1 8 AM CDT 08/05/2020 10:20 AM CDT Osvaldo Rowe MD LAB - CHEMISTRY JAMIL LINARES Performing Organization Address [facility] [place] [place] [address] * (ABNORMAL) SS-A (SJOGREN'S) ANTIBODY (08/05/2020 10:18 AM CDT) Sjogren's Antibodies (SSA) >8.0 POS(A) <1.0 NEG AI [facility] Comment: Test Performed at: [place] [address] NATHANAEL ARAGON DO,MPH 08/05/2020 10:1 8 AM CDT 08/05/2020 10:20 AM CDT Osvaldo Rowe MD LAB - CHEMISTRY JAMIL LINARES Performing Organization Address [facility] de Phone Number [facility] [address] [place] [address] * DNA ANTIBODY DOUBLE STRANDED (08/05/2020 10:18 AM CDT) Pathologist [facility] dsDNA Antibody <1 IU/mL [facility] Comment: IU/mL Interpretation < or = 4 Negative 5-9 Indeterminate > or = 10 Positive Test Performed at: [place] [address] NATHANAEL ARAGON DO,MPH 08/05/2020 10:1 8 AM CDT 08/05/2020 10:20 AM CDT Osvaldo Rowe MD LAB - HEMATOLOGY ORD ERABLES Performing Organization Address [facility] Co de Phone Number [facility] [address] [place] [address] * CYCLIC CITRULLINATED PEPTIDE(CCP) AB IGG (08/05/2020 10:18 AM CDT) Pathologist [facility] Cyclic Citrullinated Peptide Antibody IgG <16 UNITS [facility] Comment: Reference Range Negative: <20 Weak Positive: 20-39 Moderate Positive: 40-59 Strong Positive: >59 Test Performed at: [employer] [address] NATHANAEL ARAGON DO,MPH 08/05/2020 10:1 8 AM CDT 08/05/2020 10:20 AM CDT Osvaldo Rowe MD LAB - CHEMISTRY JAMIL LINARES [facility] [address] [place] [address] Care Teams Veterinary Medicine Scientist Relationship Specialty Start Date End Date Norma Mathias, DIE MAKER TRIM-COREMAKER EXPERIMENTAL [address] [place] [address] PCP - General 03/27/20 Manuel Madera MD [facility] [address] Referring Physician Dermatology 01/25/21
--- OUTSIDE RECORDS SUMMARY | 2024-03-15 15:30 | XMS_ITS | Referral Summary ---
Author Organization [facility] Address [address] [address] Care Team Providers Care House Calls Nurse Practitioner Name Role Phone Norma Mathias APRN-INTERNAL REVENUE SERVICE AGENT Primary Care Provider Manuel Madera MD Unavailable [phone] Source Comments [facility],non-owned Affiliates and Associated Physician Practices is amultiple site organization consisting of ambulatory clinics and hospital sitesin [place], [place], [place] and [place]. This disclosure is being madepursuant to the Care Everywhere program and may not contain all information available regarding this patient. Last updated 17.[facility] Allergies Active Allergy Reactions Criticality Noted [...] CDT Respiratory Rate 20 12/09/2014 9:10 AM MAILMASTER Oxygen Saturation 96% 12/09/2014 9:10 AM MAILMASTER Inhaled Oxygen Concentration - - Weight 100.7 kg (222 lb) 05/17/2021 1:14 PM CDT Height 180.3 cm (5' 11 ) 05/17/2021 1:14 PM CDT Body Mass Index 30.96 05/17/2021 1:14 PM CDT Plan of Treatment Not on file Care Teams House Calls Nurse Practitioner Relationship Specialty Start Date End Date Norma Mathias, DATA MANAGEMENT ASSOCIATE-INTERNAL REVENUE SERVICE AGENT [address] [place] [address] PCP - General 03/27/20 Manuel Madera MD [facility] [address] Referring Physician Dermatology 01/25/21
--- OUTSIDE RECORDS SUMMARY | 2024-03-15 15:30 | XMS_ITS | Clinical Summary ---
Author Organization [facility] Address [address] [place] [address] Care Team Providers Care Nursery School Teacher Name Role Phone Norma Mathias APRN-ENERGY PROJECTS LEAD Primary Care Provider Manuel Madera MD Unavailable [phone] Source Comments [facility],non-owned Affiliates and Associated Physician Practices is amultiple site organization consisting of ambulatory clinics and hospital sitesin [place], [place], [place] and [place]. This disclosure is being madepursuant to the Care Everywhere program and may not contain all information available regarding this patient. Last updated 17.[facility] Allergies Active Allergy Reactions Criticality Noted Date [...] CDT Respiratory Rate 20 12/09/2014 9:10 AM COMMUNITY HEALTH PROMOTER Oxygen Saturation 96% 12/09/2014 9:10 AM COMMUNITY HEALTH PROMOTER Inhaled Oxygen Concentration - - Weight 100.7 [...] age to complete this topic Care Teams Nursery School Teacher Relationship Specialty Start Date End Date Norma Mathias, FURRIER APPRENTICE-ENERGY PROJECTS LEAD [address] [place] [address] PCP - General 03/27/20 Manuel Madera MD [address] [address] Referring Physician Dermatology 01/25/21
== END 2024-03-15 15:24 | disposition home or self-care (01) ==
PROVIDERS: PCP Family Medicine; Visit Provider Nurse Practitioner Family
DX: I82.432 Acute embolism and thrombosis of left popliteal vein (principal); I82.442 Acute embolism and thrombosis of left tibial vein; I82.492 Acute embolism and thrombosis of other specified deep vein of left lower extremity
CPT/HCPCS: 93971